=== PATIENT | female | born 2000 | race African-American/Black ===

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

== ENCOUNTER 2020-11-06 16:32 | Emergency (ER) | payer MEDICAID ==
--- NOTE | 2020-11-06 17:14 | NUR ---
PATIENT LEFT WITHOUT BEING SEEN BY . NO FURTHER CARE PROVIDED FOR PATIENT.
== END 2020-11-06 17:14 | disposition left against medical advice (07) ==
LOC: MED 16:32
DX: R50.9 Fever, unspecified (principal); Z53.21 Procedure and treatment not carried out due to patient leaving prior to being seen by health care provider

== ENCOUNTER 2020-11-08 18:06 | Emergency (ER) | payer MEDICAID ==
[~2020-11-08] VITALS: Ht 160 cm; Wt 81.6 kg
[2020-11-08 18:51] VITALS: BP 109/63
--- NOTE | 2020-11-08 18:56 | NUR ---
TENT 1
--- NOTE | 2020-11-08 18:56 | NUR ---
COVID SWAB DONE.
[2020-11-08] MEDS ORDERED: [UNRECOGNIZED DRUG - CODE] MM (19:20)
[2020-11-08] MEDS ORDERED: IMO2 PO (19:20)
[2020-11-08] MEDS ORDERED: ACET-9882 PO (19:20)
[2020-11-08] MEDS ORDERED: IBUP-2213 PO (19:20)
[2020-11-08] MEDS ORDERED: ONDA4TAB PO (19:20)
--- NOTE | 2020-11-08 19:30 | NUR ---
PCR SWAB COLLECTED AND TAKEN TO LAB.
--- NOTE | 2020-11-08 19:37 | NUR ---
Patient discharged with v/s stable. Written and verbal after care instructions given and explained. Patient alert, oriented and verbalized understanding of instructions. Ambulatory with steady gait. All questions addressed prior to discharge. ID band removed. Patient advised to follow up with PMD. Rx of TYLENOL, MOTRIN, CEPACOL SORE THROAT LOZENGE, LOPERAMIDE, ZOFRAN given. Patient educated on indication of medication including possible reaction and side effects. Opportunity to ask questions provided and answered.
== END 2020-11-08 23:11 | disposition home or self-care (01) ==
LOC: MED 18:06
DX: M79.10 Myalgia, unspecified site (principal); Z20.822 Contact with and (suspected) exposure to COVID-19; R50.9 Fever, unspecified; J02.9 Acute pharyngitis, unspecified; Z88.5 Allergy status to narcotic agent; Z79.899 Other long term (current) drug therapy
CPT/HCPCS: 87426; 99283; U0003

== ENCOUNTER 2020-11-16 14:23 | Emergency (ER) | payer MEDICAID, SELFPAY ==
[~2020-11-16] VITALS: Ht 160 cm; Wt 84.4 kg
[~2020-11-16 14:23] MED LIST: ACET-9882 PO; IBUP-2213 PO; IMO2 PO; ONDA4TAB PO; [UNRECOGNIZED DRUG - CODE] MM
--- NOTE | 2020-11-16 14:23 | NUR ---
PT TO WAIT IN TENT.
[2020-11-16 14:29] VITALS: BP 168/63
--- NOTE | 2020-11-16 16:53 | NUR ---
[facility] LANDA WITH PT IN TEST FOR FURTHER EVALUATION.
[2020-11-16] MEDS ORDERED: ONDA-24 PO (17:21)
--- NOTE | 2020-11-16 17:54 | NUR ---
Patient discharged in the car. Written and verbal after care instructions given and explained to parent/guardian. Parent/Guardian verbalized understanding. Carried by parent. All questions addressed prior to discharge. Advised to follow up with PMD.
== END 2020-11-16 17:54 | disposition home or self-care (01) ==
LOC: MED 14:23
DX: R19.7 Diarrhea, unspecified (principal); Z88.5 Allergy status to narcotic agent; Z88.6 Allergy status to analgesic agent; Z88.8 Allergy status to other drugs, medicaments and biological substances; Z79.899 Other long term (current) drug therapy
CPT/HCPCS: 99281

== ENCOUNTER 2021-07-09 17:33 | Emergency (ER) | payer MEDICAID, OTHER, SELFPAY ==
[~2021-07-09] VITALS: Ht 160 cm; Wt 86.2 kg
[~2021-07-09 17:33] MED LIST changes: +ONDA-188 PO
[2021-07-09 17:55] VITALS: BP 128/78
[2021-07-09] MEDS ORDERED: cefTRIAXone 500 MG in LIDOCAINE MPF 1% 1 ML IM ONE (19:40)
[2021-07-09] MEDS ORDERED: LIDOCAINE MPF 1% 5 ML ONE (20:35)
[2021-07-09] MEDS ORDERED: cefTRIAXone 500 MG VIAL ONE (20:35)
[2021-07-09] MEDS ORDERED: IBUP-2213 PO (20:36)
[2021-07-09] MEDS ORDERED: DOXY-690 PO (20:36)
[2021-07-09] MEDS ORDERED: METR-435 PO (20:36)
[2021-07-09 21:19] VITALS: BP 115/79
[2021-07-09 22:19] LABS: APPEARANCE,URINE CLEAR (CLEAR); BILIRUBIN,URINE NEGATIVE (NEGATIVE); BLOOD, URINE NEGATIVE (NEGATIVE); COLOR,URINE YELLOW (YELLOW); LEUKOCYTE ESTERASE ,URINE NEGATIVE (NEGATIVE); NITRITE, URINE NEGATIVE (NEGATIVE); PH,URINE 7.5 (5.0-9.0); UGLUCOSE NEGATIVE (NEGATIVE)
== END 2021-07-09 21:19 | disposition home or self-care (01) ==
LOC: MED 17:33
DX: N76.0 Acute vaginitis (principal); B96.89 Other specified bacterial agents as the cause of diseases classified elsewhere; Z79.1 Long term (current) use of non-steroidal anti-inflammatories (NSAID); Z79.2 Long term (current) use of antibiotics; Z79.899 Other long term (current) drug therapy; Z88.5 Allergy status to narcotic agent; Z88.8 Allergy status to other drugs, medicaments and biological substances
CPT/HCPCS: 81003; 81025; 87210; 87491; 96372; 99284; J0696; J2001; 36415

== ENCOUNTER 2023-03-04 14:23 | Emergency (ER) | payer OTHER ==
[~2023-03-04] VITALS: Ht 167.6 cm; Wt 90.7 kg
[~2023-03-04 14:23] MED LIST changes: +DOXY-690 PO; +METR-435 PO
[2023-03-04 15:02] VITALS: BP 107/80; PULSE 78; RESP 18; TEMP 98; O2SAT 98
[2023-03-04] MEDS ORDERED: TRAM50TA3 PO (16:39)
[2023-03-04 17:11] VITALS: BP 112/80; PULSE 80; RESP 18; TEMP 98; O2SAT 98
== END 2023-03-04 17:11 | disposition home or self-care (01) ==
LOC: MED 14:23
DX: K13.79 Other lesions of oral mucosa (principal); Z79.899 Other long term (current) drug therapy; Z79.2 Long term (current) use of antibiotics; Z79.1 Long term (current) use of non-steroidal anti-inflammatories (NSAID); Z88.5 Allergy status to narcotic agent
CPT/HCPCS: 99283